=== PATIENT | male | born 1995 | race Caucasian/White ===

== ENCOUNTER 2017-05-15 13:59 | Emergency (ER) | payer OTHER ==
[2017-05-15 14:17] VITALS: BP 109/76
--- NOTE | 2017-05-16 02:34 | UC ---
Barbara Ordaz Edward, scribed for Chantelle Moore MD on 05/15/17 at 1520 . Skin Complaint HPI - HPI Summary HPI Summary: 22 y/o male presents to ED with a rash localized on his lower right flank. Patient states that the rash is painful on touch and pruritic. Associated sx: muscle soreness in his right flank. Patient characterizes his back pain as muscle soreness. Patient also stated that his muscle soreness came before the rash by a couple of days. PMHx psychiatric problems. - History of Current Complaint Chief Complaint: UCSkin Time Seen by Provider: 05/15/17 15:10 Stated Complaint: BACK PAIN,RASH Hx Obtained From: Patient Onset/Duration: Gradual Onset, Lasting Days - 2, Still Present Timing: Constant Onset Severity: Moderate Current Severity: Moderate Pain Intensity: 6 Pain Scale Used: 0-10 Numeric Location: Discrete - Right flank Character: Pruritus, Pain, Redness, Raised, Painful Aggravating: Nothing Alleviating: Nothing Associated Signs & Symptoms: Positive: Rash - Right flank - painful to touch and pruritic, Tenderness - Muscle soreness - Allergy/Home Medications Allergies/Adverse Reactions: Allergies Allergy/AdvReac Type Severity Reaction Status Date / Time No Known Allergies Allergy Verified 05/15/17 14:18 Home Medications: Home Medications Sertraline* [Zoloft*] 05/15/17 [History] Review of Systems Constitutional: Negative Skin: Rash - Right flank - painful to touch and pruritic Eyes: Negative ENT: Negative Respiratory: Negative Cardiovascular: Negative Gastrointestinal: Negative Genitourinary: Negative Motor: Negative Neurovascular: Negative Musculoskeletal: Myalgia - Right flank soreness Neurological: Negative Psychological: Negative All Other Systems Reviewed And Are Negative: Yes PMH/Surg Hx/FS Hx/Imm Hx Previously Healthy: Yes Psychological History: Depression - Surgical History Surgical History: None - Family History Known Family History: Positive: Other - Depression, substance abuse (mother) - Social History Occupation: Student Alcohol Use: Occasionally Alcohol Amount: 2-3 beers/day Substance Use Type: Marijuana Smoking Status (MU): Never Smoked Tobacco Physical Exam Triage Information Reviewed: Yes Appearance: Well-Appearing, Well-Nourished, Pain Distress Vital Signs: Initial Vital Signs Temp 98.9 F 05/15/17 14:14 Pulse 55 05/15/17 14:14 Resp 18 05/15/17 14:14 BP 109/76 05/15/17 14:14 Pulse Ox 99 05/15/17 14:14 Vital Signs Reviewed: Yes Eyes: Positive: Conjunctiva Clear ENT: Positive: Normal ENT inspection Neck: Positive: Supple, Nontender, No Lymphadenopathy Respiratory: Positive: Lungs clear, Normal breath sounds, No respiratory distress Cardiovascular: Positive: RRR, No Murmur, Pulses Normal, Brisk Capillary Refill Abdomen Description: Positive: Nontender, No Organomegaly, Soft. Negative: Distended, Guarding, Hepatomegaly, McBurney's Point Tenderness, Peritoneal Signs , Pulsatile Mass, Splenomegaly Bowel Sounds: Positive: Present Musculoskeletal: Positive: Strength Intact, ROM Intact Neurological: Positive: Alert, Muscle Tone Normal Psychological Exam: Normal Skin Exam: Other Skin: Positive: rashes - Macular papular vesicular right flank rash, starts @ midline in back and progresses to right ant abdomen Course/Dx - Course Course Of Treatment: 22 y/o male presents to ED with a rash localized on his lower right flank. Patient states that the rash is painful on touch and pruritic. Patient characterizes his back pain as muscle soreness. Associated sx : muscle soreness in his right flank. Patient also states that his muscle soreness preceded his rash by a couple of days. I believe the patient has Herpes Zoster and discussed the diagnosis with the patient; the patient understands and agrees. I prescribed Ibuprofen 800 mg PO and ValACYclovir 1 gm PO TID. The patient left without discharge instructions, which I will mail to his local residence. The pt was aware that I was sending 2 prescriptions to the [facility]. - Differential Diagnoses - Skin Complaint Differential Diagnoses: Cellulitis, Poison [place], Poison [place], Varicella Zoster - Diagnoses Provider Diagnoses: Herpes Zoster Discharge - Discharge Plan Condition: Stable Disposition: HOME Prescriptions: Ibuprofen TAB* [Motrin TAB* 800 MG] 800 mg PO Q6H #40 tab ValACYclovir (*) [Valtrex 1 GM(*)] 1 gm PO TID #21 tab Patient Education Materials: Shingles (ED) Referrals: [facility] [Outside] - 2 Days The documentation as recorded by the Barbara ardon Edward accurately reflects the service I personally performed and the decisions made by , Chantelle Moore MD.
== END 2017-05-15 15:32 | disposition home or self-care (01) ==
LOC: UCEAST 13:59
DX: B02.9 Zoster without complications (principal)
CPT/HCPCS: 99212; G0463